=== PATIENT | male | born 1995 | race Two or more races ===

== ENCOUNTER 2022-08-09 10:50 | Emergency (ER) | payer SELFPAY ==
[2022-08-09 11:48] LABS: BASOPHILS % (AUTO) 0.3 %; EOSINOPHILS # (AUTO) 0.1 10^3/uL (0.0-0.7); HCT - HEMATOCRIT 48.9 % (42.0-52.0); HGB - HEMOGLOBIN 15.8 g/dL (14.0-18.0); LYMPHOCYTES # (AUTO) 1.5 10^3/uL (1.5-3.5); LYMPHOCYTES % (AUTO) 24.6 %; MEAN CORPUSCULAR HEMOGLOBIN 28.2 pg (27.0-31.0); MEAN CORPUSCULAR HGB CONC 32.3 g/dL (32.0-36.0); MEAN CORPUSCULAR VOLUME 87.3 fL (80.0-94.0); MEAN PLATELET VOLUME 9.1 fL (7.4-11.4); MONOCYTES # (AUTO) 0.4 10^3/uL (0.0-1.0); NEUTROPHILS # (AUTO) 4.2 10^3/uL (1.5-6.6); NEUTROPHILS % (AUTO) 66.8 %; PLT - PLATELET COUNT 309 10^3/uL (130-450); RED CELL DISTRIBUTION WIDTH 12.8 % (12.0-15.0); WHITE BLOOD COUNT 6.3 x10^3/uL (4.8-10.8)
--- NOTE | 2022-08-09 11:48 | XRAY Report ---
PROCEDURE: Chest 1 View X-Ray INDICATIONS: Chest Pain TECHNIQUE: One view of the chest was acquired. COMPARISON: None. FINDINGS: Surgical changes and devices: None. Lungs and pleura: No pleural effusions or pneumothorax. Lungs are clear. Mediastinum: Mediastinal contours appear normal. Heart size is normal. Bones and chest wall: No suspicious bony lesions. Overlying soft tissues appear unremarkable. IMPRESSION: No acute finding. Reviewed by: Harvey Billy MD on 08/09/2022 11:[address] [facility] Approved by: Harvey Billy MD on 08/09/2022 11:[address] [facility] Station ID: [id number]
--- NOTE | 2022-08-09 11:49 | ED Physician Documentation ---
PD HPI CHEST PAIN - Stated complaint Stated Complaint: CHEST PX - Chief complaint Chief Complaint: Resp - History obtained from History obtained from: Patient, Family - History of Present Illness Timing - onset: How many years ago (1) Timing - duration: Years (1) Pain level max: 6 Pain level now: 2 Quality: Pressure Location: Substernal, Left chest, Right chest Radiation: No: Jaw, Neck, Back, Abdominal, Left upper extremity, Right upper extremity Associated symptoms: No: Shortness of air, Diaphoresis, Nausea, Vomiting, Feeling faint / dizzy, General Weakness, Palpitations, Cough Similar symptoms before: Has not had sx before Recently seen: Not recently seen - Additional information Additional information: Patient is a 27-year-old male who presents to the emergency department with chest pain for the past 1 year. He states this occurs every day. He states it feels like a tightness or pressure. He states nothing really makes it better or worse but occasionally he will notice it more if he is running. No history of young cardiac in the family. Patient denies any medical history. Is not on any medications. Does not smoke or drink. He does not believe that the pain changes with food. He states sometimes is on the left of his chest, sometimes on the right and sometimes in the center. He states sometimes it lasts all day and sometimes will last for part of the day but is unable to be any more specific than that. Patient is Vietnamese-speaking and a Vietnamese phone paraprofessional interpreter was used for the interview. No fever. No cough. No congestion. No history of blood clots. Review of Systems Ten Systems: 10 systems reviewed and negative Constitutional: denies: Fever, Chills Nose: denies: Rhinorrhea / runny nose, Congestion Cardiac: denies: Palpitations, Calf pain Respiratory: denies: Dyspnea, Cough, Wheezing GI: denies: Abdominal Pain, Nausea, Vomiting, Diarrhea Skin: denies: Rash Musculoskeletal: denies: Neck pain, Back pain Neurologic: denies: Headache PD PAST MEDICAL HISTORY - Past Medical History Past Medical History: No - Past Surgical History Past Surgical History: No - Present Medications Home Medications: Ambulatory Orders Medication Instructions Recorded Confirmed Albuterol Sulf [Ventolin Hfa 1 - 2 puffs INH Q4HR PRN #1 each 08/09/22 Inhaler] predniSONE [Deltasone] 10 mg PO [id number] #42 tab 08/09/22 - Allergies Allergies/Adverse Reactions: Allergies Allergy/AdvReac Type Severity Reaction Status Date / Time No Known Drug Allergies Allergy Verified 08/09/22 11:09 - Living Situation Living Situation: reports: With family Living Arrangement: reports: At home - Social History Does the pt smoke?: No Does the pt drink ETOH?: No Does the pt have substance abuse?: No - Family History Family history: reports: Non contributory PD ED PE NORMAL - Vitals Vital signs reviewed: Yes - General General: Alert and oriented X 3, No acute distress, Well developed/nourished - HEENT HEENT: PERRL, Moist mucous membranes - Neck Neck: Supple, no meningeal sign, No JVD, No bruit - Cardiac Cardiac: RRR, No murmur, Strong equal pulses - Respiratory Respiratory: No respiratory distress, Clear bilaterally - Abdomen Abdomen: Soft, Non tender, Non distended - Derm Derm: Warm and dry - Extremities Extremities: No edema, No calf tenderness / cord - Neuro Neuro: Alert and oriented X 3 - Psych Psych: Normal mood, Normal affect Results - Vitals Vitals: Vital Signs - 24 hr 08/09/22 08/09/22 08/09/22 11:02 12:30 13:09 Temperature 37.1 C 36.6 C Heart Rate 110 H 113 H 102 H Respiratory 16 16 21 Rate Blood Pressure 148/90 H 151/94 H O2 Saturation 98 97 Oxygen O2 Source Room air - EKG (time done) 1113 Rate: Rate (enter#) (94) Rhythm: NSR [place]: Normal Intervals: Normal [place] QRS: Normal Ischemia: Normal ST segments - Labs Labs: Laboratory Tests 08/09/22 08/09/22 08/09/22 11:33 11:33 11:33 WBC 6.3 RBC 5.60 Hgb 15.8 Hct 48.9 MCV 87.3 MCH 28.2 MCHC 32.3 RDW 12.8 Plt Count 309 MPV 9.1 Neut # (Auto) 4.2 Lymph # (Auto) 1.5 Tripp # (Auto) 0.4 Eos # (Auto) 0.1 Baso # (Auto) 0.0 Absolute Nucleated RBC 0.00 Nucleated RBC % 0.0 D-Dimer < 200.0 L Sodium 137 Potassium 3.5 Chloride 100 L Carbon Dioxide 27 Anion Gap 10.0 BUN 12 Creatinine 0.8 Estimated GFR (MDRD) 118 Glucose 150 H Calcium 9.4 Total Bilirubin 0.8 AST 23 ALT 22 Alkaline Phosphatase 81 Troponin I High Sens Total Protein 7.5 Albumin 4.3 Globulin 3.2 Albumin/Globulin Ratio 1.3 Lipase 35 08/09/22 11:33 WBC RBC Hgb Hct MCV MCH MCHC RDW Plt Count MPV Neut # (Auto) Lymph # (Auto) Tripp # (Auto) Eos # (Auto) Baso # (Auto) Absolute Nucleated RBC Nucleated RBC % D-Dimer Sodium Potassium Chloride Carbon Dioxide Anion Gap BUN Creatinine Estimated GFR (MDRD) Glucose Calcium Total Bilirubin AST ALT Alkaline Phosphatase Troponin I High Sens 3.4 Total Protein Albumin Globulin Albumin/Globulin Ratio Lipase - Rads (name of study) cxr Radiology: Final report received, See rad report (No acute abnormality) PD Medical Decision Making - ED course Complexity details: reviewed results, re-evaluated patient, considered differential (No ST elevation VT, no aortic dissection, no PE, no tension pneumothorax, no aortic aneurysm), d/w patient, d/w family ED course: Patient is a 27-year-old male who complains of chest pain for the past 1 year. A CBC, D-dimer, CMP and troponin were ordered. These are all negative except for a mildly elevated blood glucose of 150. His chest x-ray does not show any acute abnormalities. EKG does not show any significant abnormalities. He was given a nebulizer treatments and feels like his breathing is improved and the chest pain has dissipated. Not much change with GI cocktail. Likely that this is related to a primary lung issue, possible asthma? Patient is well-appearing, nontoxic. Afebrile. Improved aeration of the bilateral lungs after nebulizer treatment. Will prescribe an inhaler for home as well as a steroid taper. We will have him follow-up with his primary care provider for further care. Patient counseled regarding signs and symptoms for which I believe and urgent re-evaluation would be necessary. Patient with good understanding of and agreement to plan and is comfortable going home at this time This document was made in part using voice recognition software. While efforts are made to proofread this document, sound alike and grammatical errors may occur. diplomatic interpreter was used for all interactions Departure - Departure Disposition: Home, Self Care Clinical Impression: Asthma Qualifiers: Asthma severity: unspecified severity Asthma persistence: unspecified Asthma complication type: unspecified Qualified Code(s): J45.909 - Unspecified asthma, uncomplicated Chest pain Qualifiers: Chest pain type: unspecified Qualified Code(s): R07.9 - Chest pain, unspecified Condition: Good Instructions: ED Reactive Airway Disease, ED Chest Pain Atypical Unkn Cause Follow-Up: [facility] [place] [Provider Group] [facility] [place] [Provider Group] Prescriptions: Albuterol Sulf [Ventolin Hfa Inhaler] 1 - 2 puffs INH Q4HR PRN #1 each PRN Reason: Shortness Of Air/Wheezing predniSONE [Deltasone] 10 mg PO [id number] #42 tab Print Language: Vietnamese Comments: Your prescriptions were sent to [facility] in [place]. Please follow-up with your doctor for further care. It appears that you likely have asthma and that this is been the source of your difficulty breathing and chest pain. Your EKG, chest x-ray and laboratory studies do not show any acute abnormalities today. It is important that you follow-up with your doctor to confirm this diagnosis and to exclude alternative diagnoses. Please return if you worsen. You can call the hospital at [phone] and ask for the finance department to discuss your bill. [facility]etas [facility]on [facility]adas [facility] [place]. Por favor, yaritza un seguimiento con rosenthal mdico para recibir atencin adicional. Parece que usted tiene asma y que esta arellano sido la causa de rosenthal dificultad para respirar y dolor en el pecho. Rosenthal electrocardiograma, radiografa de trax y estudios de laboratorio no muestran anomalas agudas hoy. Es importante que yaritza un seguimiento con rosenthal mdico para confirmar yanely diagnstico y excluir diagnsticos alternativos. Por favor, devulvelo si empeoras. Puede llamar al hospital al [phone] y pedir hablar con el departamento de yajairaas para analizar rosenthal factura. Discharge Date/Time: 08/09/22 13:38
[2022-08-09 12:03] LABS: ALBUMIN 4.3 g/dL (3.2-5.5); ALBUMIN/GLOBULIN RATIO 1.3 (1.0-2.2); BILIRUBIN,TOTAL 0.8 mg/dL (0.2-1.0); CALCIUM 9.4 mg/dL (8.5-10.3); CREATININE 0.8 mg/dL (0.6-1.2); POTASSIUM 3.5 mmol/L (3.5-5.0); TOTAL PROTEIN 7.5 g/dL (6.7-8.2)
[2022-08-09] MEDS ORDERED: LIDOCAINE VISCOUS 2% 15 ML UDC MM STA (12:10)
[2022-08-09] MEDS ORDERED: MAG HYDROX/AL HYDROX/SIMETH 30 ML UDC PO STA (12:10)
[2022-08-09] MEDS ORDERED: IPRATROPIUM/ALBUTEROL 3 ML NEB INH STA (12:10)
[2022-08-09] MEDS ORDERED: SUCRALFATE 1 GM/10 ML UDC PO STA (12:10)
[2022-08-09 13:26] VITALS: BP 151/94
== END 2022-08-09 13:38 | disposition home or self-care (01) ==
LOC: ED 10:50
DX: R07.9 Chest pain, unspecified (principal); J45.909 Unspecified asthma, uncomplicated
CPT/HCPCS: 36415; 71045; 80053; 83690; 84484; 85025; 85379; 93005; 94150; 94640; 94664; 99284; A9270

== ENCOUNTER 2022-08-18 10:19 | Emergency (ER) | payer SELFPAY ==
--- NOTE | 2022-08-18 14:20 | ED Physician Documentation ---
PD HPI DYSPNEA - Stated complaint Stated Complaint: CHEST PX - Chief complaint Chief Complaint: Resp - History obtained from History obtained from: Patient - Additional information Additional information: 27-year-old gentleman seen recently by my partner for wheezing, he got an albuterol inhaler which she says was quite helpful, but would like a refill. He has no acute complaints. Review of Systems Constitutional: denies: Fever, Chills Cardiac: denies: Chest pain / pressure Respiratory: reports: Dyspnea. denies: Cough PD PAST MEDICAL HISTORY - Past Surgical History Past Surgical History: No - Present Medications Home Medications: Ambulatory Orders Medication Instructions Recorded Confirmed Albuterol Sulf [Ventolin Hfa 1 - 2 puffs INH Q4HR PRN #1 each 08/09/22 08/18/22 Inhaler] Albuterol Sulf [Ventolin Hfa 1 - 2 puffs INH Q4HR PRN #1 each 08/18/22 Inhaler] - Allergies Allergies/Adverse Reactions: Allergies Allergy/AdvReac Type Severity Reaction Status Date / Time No Known Drug Allergies Allergy Verified 08/18/22 10:30 - Social History Does the pt smoke?: No Smoking Status: Never smoker Does the pt drink ETOH?: No Does the pt have substance abuse?: No PD ED PE NORMAL - Vitals Vital signs reviewed: Yes - General General: Alert and oriented X 3, No acute distress - Cardiac Cardiac: RRR, No murmur - Respiratory Respiratory: No respiratory distress, Clear bilaterally - Abdomen Abdomen: Non tender - Extremities Extremities: No edema, No calf tenderness / cord - Neuro Neuro: Alert and oriented X 3, Normal speech Results - Vitals Vitals: Vital Signs - 24 hr 08/18/22 10:22 Temperature 36.4 C L Heart Rate 103 H Respiratory 14 Rate Blood Pressure 152/105 H O2 Saturation 97 Oxygen O2 Source Room air PD Medical Decision Making - ED course ED course: 27-year-old gentleman presents requesting albuterol refill and that this is given. He has no other acute complaints. Departure - Departure Disposition: Home, Self Care Clinical Impression: Asthma Qualifiers: Asthma severity: mild Asthma persistence: intermittent Asthma complication type: with acute exacerbation Qualified Code(s): J45.21 - Mild intermittent asthma with (acute) exacerbation Condition: Good Record reviewed to determine appropriate education?: Yes Instructions: ALBUTEROL Oral Inhaler, Asthma Dc Prescriptions: Albuterol Sulf [Ventolin Hfa Inhaler] 1 - 2 puffs INH Q4HR PRN #1 each PRN Reason: Shortness Of Air/Wheezing Print Language: Israeli Comments: Call your doctor to arrange a follow-up appointment, make the next available appointment. In the interim, return anytime if worse or if new symptoms develop.
[2022-08-18 14:26] VITALS: BP 121/75
== END 2022-08-18 14:26 | disposition home or self-care (01) ==
LOC: ED 10:19
DX: Z76.0 Encounter for issue of repeat prescription (principal); J45.21 Mild intermittent asthma with (acute) exacerbation
CPT/HCPCS: 99282; 99284